=== PATIENT | male | born 1975 | race Caucasian/White ===

== ENCOUNTER 2017-11-14 11:33 | Emergency (ER) | payer MEDICAID, MEDICARE, SELFPAY ==
[~2017-11-14] VITALS: Ht 157.5 cm; Wt 113.0 kg
[~2017-11-14 11:33] MED LIST: DIVA500T35 PO; DIVA500T69 PO; FLUO-191 PO; FLUO20CA30 PO; QUET200T PO; RISP3TAB44 PO
[2017-11-14 11:53] LABS: GLUCOSE,POINT OF CARE 102 MG/DL (70-110)
[2017-11-14] MEDS ORDERED: MORPHINE SULFATE 10 MG/ML SYRINGE IM ONE (13:00)
[2017-11-14 14:04] VITALS: BP 142/68
== END 2017-11-14 14:00 | disposition home or self-care (01) ==
LOC: EMS 11:35
DX: M54.5 Low back pain (principal); E66.9 Obesity, unspecified; I10 Essential (primary) hypertension; F17.210 Nicotine dependence, cigarettes, uncomplicated; Z68.42 Body mass index [BMI] 45.0-49.9, adult
CPT/HCPCS: 82962; 96372; 99283; J2270

== ENCOUNTER 2018-04-14 19:38 | Emergency (ER) | payer MEDICARE, MEDICAID ==
[~2018-04-14] VITALS: Ht 167.6 cm; Wt 120.5 kg
[~2018-04-14 19:38] MED LIST changes: -DIVA500T69 PO; -FLUO20CA30 PO
[2018-04-14 19:54] LABS: GLUCOSE,POINT OF CARE 128 MG/DL (70-110)
[2018-04-14] MEDS ORDERED: OMEG1CAP99 PO (20:10)
[2018-04-14] MEDS ORDERED: ALPR0.255 PO (20:10)
[2018-04-14] MEDS ORDERED: TOPI100T37 PO (20:10)
[2018-04-14] MEDS ORDERED: CLOP75 PO (20:10)
[2018-04-14] MEDS ORDERED: MELA3TAB66 PO (20:10)
[2018-04-14] MEDS ORDERED: IBUP-2070 PO (20:10)
[2018-04-14] MEDS ORDERED: LOPE2 PO (20:10)
[2018-04-14] MEDS ORDERED: VITAD50000 PO (20:10)
[2018-04-14] MEDS ORDERED: FENO43CA5 PO (20:10)
[2018-04-14] MEDS ORDERED: SUMA25TA9 PO (20:10)
[2018-04-14] MEDS ORDERED: ATOM40 PO (20:10)
[2018-04-14] MEDS ORDERED: DOXE25 PO (20:10)
[2018-04-14] MEDS ORDERED: HYDR-4061 PO (20:10)
[2018-04-14] MEDS ORDERED: AMAN100C12 PO (20:10)
[2018-04-14] MEDS ORDERED: BUSP15 PO (20:10)
[2018-04-14] MEDS ORDERED: ONDA4 PO (20:10)
[2018-04-14] MEDS ORDERED: SIMV-261 PO (20:10)
[2018-04-14] MEDS ORDERED: ASPI81 PO (20:10)
[2018-04-14] MEDS ORDERED: CHLO25 PO (20:10)
[2018-04-14] MEDS ORDERED: OMEP20 PO (20:10)
[2018-04-14] MEDS ORDERED: LEVO50 PO (20:10)
[2018-04-14 20:14] LABS: BASOPHILS % (AUTO) 0.7 % (0.0-2.0); EOSINOPHILS % (AUTO) 4.3 % (1.0-6.0); HEMOGLOBIN 11.5 g/dL (13.5-17.5); LYMPHOCYTES # (AUTO) 2.5 K/uL (1.0-4.8); LYMPHOCYTES % (AUTO) 43.9 % (22.0-44.0); MEAN CORPUSCULAR HEMOGLOBIN 29.3 pg (26.0-34.0); MEAN CORPUSCULAR HGB CONC 33.7 G/dL (31.0-37.0); MEAN CORPUSCULAR VOLUME 87 fL (80-100); MONOCYTES # (AUTO) 0.4 K/uL (0.1-1.0); MONOCYTES % (AUTO) 7.5 % (2.0-9.0); NEUTROPHILS # (AUTO) 2.5 K/uL (1.8-7.7); NEUTROPHILS % (AUTO) 43.6 % (40.0-70.0); PLATELET COUNT (AUTO) 248 K/uL (150-450); RED BLOOD CELL COUNT(AUTO) 3.92 MIL/uL (4.50-5.90); RED CELL DISTRIBUTION WIDTH 14.1 % (11.5-14.5)
[2018-04-14 20:14] LABS: AMPHET/METH SCREEN,URINE NEGATIVE (NEGATIVE); BARBITURATE SCREEN, URINE NEGATIVE (NEGATIVE); BENZODIAZEPINES SCREEN,URINE POSITIVE (NEGATIVE); CANNABINOID SCREEN,URINE NEGATIVE (NEGATIVE); COCAINE SCREEN,URINE NEGATIVE (NEGATIVE); METHADONE SCREEN, URINE NEGATIVE (NEGATIVE); OPIATE SCREEN,URINE NEGATIVE (NEGATIVE)
[2018-04-14 20:18] LABS: PHENCYCLIDINE SCREEN,URINE NEGATIVE (NEGATIVE)
[2018-04-14 20:25] LABS: ANION GAP 10 mmol/L (8-16); CALCIUM, TOTAL 9.2 mg/dL (8.8-10.5); CARBON DIOXIDE 26 mmol/L (22-29); CHLORIDE 105 mmol/L (98-107); CREATININE 1.01 mg/dL (0.60-1.30); GLOMERULAR FILTR. RATE CALC > 60 mL/min (>60); GLUCOSE,RANDOM 126 mg/dL (70-110); POTASSIUM 3.6 mmol/L (3.5-5.1); SODIUM SERUM 141 mmol/L (136-145); UREA NITROGEN, BLOOD 10 mg/dL (7-18)
[2018-04-14] MEDS ORDERED: LORazepam 2 MG TABLET PO ONE (20:30)
[2018-04-14 20:31] LABS: ALANINE AMINOTRANSFERASE 50 U/L (12-78); ALBUMIN 3.6 g/dL (3.4-5.0); ALKALINE PHOSPHATASE 70 U/L (46-116); ASPARTATE AMINOTRANSFERASE 62 U/L (15-37); BILIRUBIN,TOTAL 0.2 mg/dL (0.1-1.0); TOTAL PROTEIN, SERUM 7.8 g/dL (6.4-8.2)
[2018-04-14 21:00] VITALS: BP 129/80
== END 2018-04-14 21:20 | disposition home or self-care (01) ==
LOC: EMS 19:40
DX: F69 Unspecified disorder of adult personality and behavior (principal); F20.9 Schizophrenia, unspecified; F32.9 Major depressive disorder, single episode, unspecified; E11.9 Type 2 diabetes mellitus without complications; I10 Essential (primary) hypertension; F17.210 Nicotine dependence, cigarettes, uncomplicated
CPT/HCPCS: 36415; 80053; 80307; 82962; 85025; 99285; 99406; G0480

== ENCOUNTER 2018-10-04 17:52 | Emergency (ER) | payer MEDICARE, MEDICAID ==
[~2018-10-04] VITALS: Ht 167.6 cm; Wt 109.1 kg
[~2018-10-04 17:52] MED LIST changes: +ALPR0.255 PO; +AMAN100C12 PO; +ASPI81 PO; +ATOM40 PO; +BUSP15 PO; +CHLO25 PO; +CLOP75 PO; +DIVA-78 PO; -DIVA500T35 PO; +DOXE25 PO; +FENO43CA5 PO; -FLUO-191 PO; +HYDR-4061 PO; +IBUP-2070 PO; +LEVO50 PO; +LOPE2 PO; +MELA3TAB66 PO; +OMEG1CAP99 PO; +OMEP20 PO; +ONDA4 PO; -QUET200T PO; +SIMV-261 PO; +SUMA25TA9 PO; +TOPI100T37 PO; +VITAD50000 PO
[2018-10-04 19:51] LABS: BASOPHILS % (AUTO) 0.5 % (0.0-2.0); EOSINOPHILS % (AUTO) 4.1 % (1.0-6.0); HEMATOCRIT 37.1 % (41-53); HEMOGLOBIN 12.2 g/dL (13.5-17.5); LYMPHOCYTES # (AUTO) 2.8 K/uL (1.0-4.8); LYMPHOCYTES % (AUTO) 41.5 % (22.0-44.0); MEAN CORPUSCULAR HEMOGLOBIN 27.9 pg (26.0-34.0); MEAN CORPUSCULAR HGB CONC 32.8 G/dL (31.0-37.0); MEAN CORPUSCULAR VOLUME 85 fL (80-100); MONOCYTES # (AUTO) 0.5 K/uL (0.1-1.0); NEUTROPHILS # (AUTO) 3.2 K/uL (1.8-7.7); NEUTROPHILS % (AUTO) 46.9 % (40.0-70.0); PLATELET COUNT (AUTO) 247 K/uL (150-450); RED BLOOD CELL COUNT(AUTO) 4.35 MIL/uL (4.50-5.90); RED CELL DISTRIBUTION WIDTH 18.6 % (11.5-14.5)
[2018-10-04 20:01] LABS: ANION GAP 8 mmol/L (8-16); CALCIUM, TOTAL 9.7 mg/dL (8.8-10.5); CARBON DIOXIDE 30 mmol/L (22-29); CHLORIDE 106 mmol/L (98-107); CREATININE 0.89 mg/dL (0.60-1.30); GLOMERULAR FILTR. RATE CALC > 60 mL/min (>60); GLUCOSE,RANDOM 103 mg/dL (70-110); SODIUM SERUM 144 mmol/L (136-145); UREA NITROGEN, BLOOD 12 mg/dL (7-18)
[2018-10-04 20:07] LABS: ALANINE AMINOTRANSFERASE 40 U/L (12-78); ALBUMIN 3.8 g/dL (3.4-5.0); ALKALINE PHOSPHATASE 59 U/L (46-116); ASPARTATE AMINOTRANSFERASE 35 U/L (15-37); BILIRUBIN,TOTAL 0.2 mg/dL (0.1-1.0)
[2018-10-04 21:01] LABS: AMPHET/METH SCREEN,URINE NEGATIVE (NEGATIVE); BARBITURATE SCREEN, URINE NEGATIVE (NEGATIVE); BENZODIAZEPINES SCREEN,URINE NEGATIVE (NEGATIVE); CANNABINOID SCREEN,URINE NEGATIVE (NEGATIVE); COCAINE SCREEN,URINE NEGATIVE (NEGATIVE); METHADONE SCREEN, URINE NEGATIVE (NEGATIVE); OPIATE SCREEN,URINE NEGATIVE (NEGATIVE)
[2018-10-04 21:08] LABS: PHENCYCLIDINE SCREEN,URINE NEGATIVE (NEGATIVE)
[2018-10-04 21:24] LABS: GLUCOSE,POINT OF CARE 101 MG/DL (70-110)
[2018-10-04] MEDS: LORazepam 2 MG TABLET PO ONE (22:06)
[2018-10-04] MEDS: DiphenhydrAMINE HCL 25 MG CAPSULE PO ONE (22:06)
[2018-10-04 22:10] VITALS: BP 113/80
== END 2018-10-04 22:28 | disposition home or self-care (01) ==
LOC: EMS 17:53
DX: F20.0 Paranoid schizophrenia (principal); F32.9 Major depressive disorder, single episode, unspecified; I10 Essential (primary) hypertension; E11.9 Type 2 diabetes mellitus without complications; F17.210 Nicotine dependence, cigarettes, uncomplicated; Z79.82 Long term (current) use of aspirin; Z79.899 Other long term (current) drug therapy
CPT/HCPCS: 36415; 80053; 80307; 82962; 85025; 99285; G0480